=== PATIENT | female | born 1960 | race Caucasian/White ===

== ENCOUNTER 2016-07-09 11:33 | Emergency (ER) | payer OTHER ==
[2016-07-09 11:46] VITALS: BP 154/71; PULSE 96; TEMP 97.8; BMI 37.9
[2016-07-09] MEDS ORDERED: diazePAM 5 MG TABLET PO ONE (12:57)
[2016-07-09] MEDS ORDERED: KETOROLAC TROMETHAMINE 60 MG/2 ML VIAL IM ONE (12:57)
[2016-07-09] MEDS ORDERED: KETOROLAC TROMETHAMINE 60 MG/2 ML VIAL ONE (13:03)
[2016-07-09] MEDS ORDERED: diazePAM 5 MG TABLET ONE (13:03)
--- NOTE | 2016-07-09 13:43 | PDOC ---
History of Present Illness - General Chief Complaint: Back Pain Stated Complaint: BACK PAIN Time Seen by Provider: 07/09/16 12:03 History Source: Patient Exam Limitations: No Limitations - History of Present Illness Initial Comments: 07/09/16 13:02 56-year-old female with acute on chronic low back pain presents the ED with sharp pressure to her lumbar spine radiating down her left leg into her buttock. Patient states had x-rays done 2 months ago as request from her PCP which she states had noted arthritis with no acute findings. Patient states has not taken anything for the pain today and decided come to the ER for further evaluation. Patient denies incontinence, saddle anesthesia, abdominal pain, weakness, edema, or sensory changes to her lower extremities. Occurred: reports: just prior to arrival Severity: reports: moderate Pain Location: reports: back Method of Injury: Yes: unknown Loss of Consciousness: no loss of consciousness Associated Symptoms (Fall): trouble walking Past History - Past Medical History Allergies/Adverse Reactions: Allergies Allergy/AdvReac Type Severity Reaction Status Date / Time No Known Allergies Allergy Verified 07/09/16 11:36 Home Medications: Ambulatory Orders Aspirin [ASA -] 325 mg PO DAILY #30 tablet 01/17/16 Docusate Sodium [Colace -] 100 mg PO TID #90 capsule 01/28/16 Montelukast Na [Singulair -] 10 mg PO HS 02/06/16 Levetiracetam [Keppra -] 500 mg PO BID #60 tablet 02/07/16 Lisinopril [Prinivil] 5 mg PO DAILY #30 tablet 02/07/16 Simvastatin 20 mg PO HS #30 tablet 02/07/16 Anemia: Yes Asthma: No Cancer: No Cardiac Disorders: No CVA: Yes (recent history of right parietal cva) COPD: No CHF: No Diabetes: No GI Disorders: No Disorders: No HTN: Yes Hypercholesterolemia: Yes Liver Disease: No Seizures: No Thyroid Disease: No - Immunization History Immunization Up to Date: No - Psycho/Social/Smoking Cessation Hx Anxiety: No Suicidal Ideation: No Smoking History: Never smoked Have you smoked in the past 12 months: No Information on smoking cessation initiated: No Hx Alcohol Use: No Drug/Substance Use Hx: No Substance Use Type: None Hx Substance Use Treatment: No Patient Lives Alone: No Lives with/in: spouse/SO Trauma Specific PMHX - Complaint Specific PMHX Arthritis: No Back Injury: No Neck Injury: No Hx Sacro Iliac Joint Dysfunction: No Review of Systems - Review of Systems Able to Perform ROS?: Yes Constitutional: No: Symptoms Reported HEENTM: No: Symptoms Reported ABD/GI: No: Symptoms Reported Musculoskeletal: Yes: Back Pain, Muscle Pain (left buttock) Integumentary: No: Symptoms Reported Neurological: No: Symptoms reported, Numbness, Tingling, Weakness, Dizziness Endocrine: No: Symptoms Reported Hematologic/Lymphatic: No: Symptoms Reported *Physical Exam - Vital Signs Last Vital Signs Temp Pulse Resp BP Pulse Ox 97.8 F 96 H 18 154/71 100 07/09/16 11:36 07/09/16 11:36 07/09/16 11:36 07/09/16 11:36 07/09/16 11:36 - Physical Exam General Appearance: Yes: Nourished, Appropriately Dressed. No: Apparent Distress Neck: negative: Tender, Supple Respiratory/Chest: positive: Lungs Clear, Normal Breath Sounds. negative: Respiratory Distress, Accessory Muscle Use Cardiovascular: positive: Regular Rhythm, Regular Rate. negative: Murmur Gastrointestinal/Abdominal: positive: Soft. negative: Tenderness Musculoskeletal: positive: Vertebral Tenderness (Mild midline L5 tenderness. Moderate tenderness to paraspinous muscle of L4-L5 and left sciatica. ) Extremity: positive: Normal Capillary Refill, Normal Inspection, Normal Range of Motion. negative: Pedal Edema Integumentary: positive: Normal Color, Warm, Moist Neurologic: positive: Motor Strength 5/5 (ambulatory with minimal assistance) ED Treatment Course - Medications Given in the ED: ED Medications Discontinued Medications Generic Name Dose Route Start Last Admin Trade Name Freq PRN Reason Stop Dose Admin Diazepam 5 mg 07/09/16 12:57 07/09/16 13:14 Valium - PO 07/09/16 12:58 5 mg ONCE ONE Administration Ketorolac Tromethamine 60 mg 07/09/16 12:57 07/09/16 13:12 Toradol Injection - IM 07/09/16 12:58 60 mg ONCE ONE Administration Medical Decision Making - Medical Decision Making 07/09/16 13:05 Patient with acute on chronic low back pain likely with sciatica. Patient then had mild point tenderness to L4-L5 region with left sciatic tenderness over the left buttock. Patient ambulatory to the bathroom with minimal assistance of her . Patient ordered for pain control muscle relaxant. Patient had x-ray done in April which showed degenerative changes with arthritis to the affected area. Patient will be given a referral to Dr. Woodruff. *DC/Admit/Observation/Transfer Diagnosis at time of Disposition: Low back pain radiating to lower extremity - Discharge Dispostion Disposition: HOME Condition at time of disposition: Improved - Referrals Referrals: Carson Woodruff MD [Staff Physician] - - Patient Instructions Printed Discharge Instructions: DI for Low Back Pain Additional Instructions: Please take Percocet and Flexeril as recommended and prescribed and follow-up with referred physician. Return to ED If symptoms worsen prior to your follow-up
== END 2016-07-09 15:00 | disposition home or self-care (01) ==
LOC: JER 11:33
PROC: 3E0233Z Introduction of Anti-inflammatory into Muscle, Percutaneous Approach (ICD-10-PCS; principal; 2016-07-09)
DX: M54.42 Lumbago with sciatica, left side (principal); I10 Essential (primary) hypertension; E78.00 Pure hypercholesterolemia, unspecified; Z86.73 Personal history of transient ischemic attack (TIA), and cerebral infarction without residual deficits
CPT/HCPCS: 96372; 99282-25

== ENCOUNTER 2019-05-02 10:52 | Emergency (ER) | payer OTHER ==
[2019-05-02 11:10] VITALS: BMI 38.4
[2019-05-02] MEDS ORDERED: ACETAMINOPHEN 500 MG TABLET (FP) PO ONE (13:00)
[2019-05-02] MEDS ORDERED: ACETAMINOPHEN 325 MG TABLET (FP) ONE ×2 (13:02→13:03)
--- NOTE | 2019-05-02 14:15 | PDOC ---
Documentation entered by Deb Martínez SCRIBE, acting as scribe for Dayana Montemayor MD. Dayana Montemayor MD: This documentation has been prepared by the Mauricio gomez Nirvannie, SCRIBE, under my direction and personally reviewed by me in its entirety. I confirm that the documentation accurately reflects all work, treatment, procedures, and medical decision making performed by me. History of Present Illness - General Chief Complaint: Injury Stated Complaint: FELL Time Seen by Provider: 05/02/19 11:28 History Source: Patient Exam Limitations: No Limitations - History of Present Illness Initial Comments: 05/02/19 13:00 The patient is a 58 year old female, with a significant past medical history of R CVA 2016 with no residual deficits, chronic low back pain, HTN, and thyroid disorder, who presents to the emergency department s/p fall down 3 stairs. As per patient, she was walking down the stairs when she accidentally missed a step causing her to fall forward down 3 stairs. Pt states she rolled her ankles b/l and currently c/o pain only to bilateral shins, ankles, and feet. Patient called for daughter and was helped up immediately. She was able to ambulate with pain s/p fall. She denies any LOC, head/neck trauma, or convulsions. She denies pain elsewhere. She takes ASA daily but is not on any other blood thinners. She denies any neck or back pain. She denies recent fevers, chills, headache or dizziness. She denies recent nausea, vomiting, diarrhea or constipation. She denies recent dysuria, frequency, urgency or hematuria. She denies recent chest pain or shortness of breath. She was in her [facility] prior to the fall. Allergies: NKDA Primary Care Physician: Dr. Valadez Past History - Past Medical History Allergies/Adverse Reactions: Allergies Allergy/AdvReac Type Severity Reaction Status Date / Time No Known Allergies Allergy Verified 07/09/16 11:36 Home Medications: Ambulatory Orders Aspirin [ASA -] 325 mg PO DAILY #30 tablet 01/17/16 Docusate Sodium [Colace -] 100 mg PO TID #90 capsule 01/28/16 Montelukast Na [Singulair -] 10 mg PO HS 02/06/16 Lisinopril [Prinivil] 5 mg PO DAILY #30 tablet 02/07/16 Simvastatin 20 mg PO HS #30 tablet 02/07/16 levETIRAcetam [Keppra -] 500 mg PO BID #60 tablet 02/07/16 Anemia: Yes Asthma: No Cancer: No Cardiac Disorders: No CVA: Yes (recent history of right parietal cva) COPD: No CHF: No Diabetes: No GI Disorders: No Disorders: No HTN: Yes Hypercholesterolemia: Yes Liver Disease: No Seizures: No Thyroid Disease: No - Immunization History Immunization Up to Date: No - Psycho Social/Smoking Cessation Hx Smoking History: Never smoked Have you smoked in the past 12 months: No Hx Alcohol Use: No Drug/Substance Use Hx: No Substance Use Type: None Hx Substance Use Treatment: No Review of Systems - Review of Systems Able to Perform ROS?: Yes Comments:: 05/02/19 13:01 GENERAL/CONSTITUTIONAL: No fever or chills. No weakness. HEAD, EYES, EARS, NOSE AND THROAT: No change in vision. No ear pain or discharge. No sore throat. GASTROINTESTINAL: No nausea, vomiting, diarrhea or constipation. GENITOURINARY: No dysuria, frequency, or change in urination. CARDIOVASCULAR: No chest pain or shortness of breath. RESPIRATORY: No cough, wheezing, or hemoptysis. MUSCULOSKELETAL: +Blt ankle, morris and foot pain. No neck or back pain. SKIN: No rash NEUROLOGIC: No headache, vertigo, loss of consciousness, or change in strength/ sensation. ENDOCRINE: No increased thirst. No abnormal weight change. HEMATOLOGIC/LYMPHATIC: No anemia, easy bleeding, or history of blood clots. ALLERGIC/IMMUNOLOGIC: No hives or skin allergy. *Physical Exam - Vital Signs Last Vital Signs Temp Pulse Resp BP Pulse Ox 97.8 F 68 19 121/80 99 05/02/19 11:08 05/02/19 11:08 05/02/19 11:08 05/02/19 11:08 05/02/19 11:08 - Physical Exam 05/02/19 13:02 GENERAL: Awake, alert, and fully oriented, in no acute distress HEAD: No signs of trauma EYES: PERRLA, EOMI, sclera anicteric, conjunctiva clear ENT: Auricles normal inspection, hearing grossly normal, nares patent, oropharynx clear without exudates. Moist mucosa NECK: Normal ROM, supple, no lymphadenopathy, JVD, or masses LUNGS: Breath sounds equal, clear to auscultation bilaterally. No wheezes, and no crackles HEART: Regular rate and rhythm, normal S1 and S2, no murmurs, rubs or gallops ABDOMEN: Soft, nontender, normoactive bowel sounds. No guarding, no rebound. No masses EXTREMITIES: +Tenderness to the right lateral malleolus, left distal tibia and medial malleolus with no deformities, crepitus or edema. FROM in all LE joints b /l. 2+ DP and TP pulses b/l. +Superficial 1cm abrasion to the inferior right patella. Normal strength agianst resistance to all joints in LE b/l. Normal sensation. WWP. Otherwise. Normal range of motion, no edema. No clubbing or cyanosis. No cords or erythema. BACK: No midline spinal tenderness in cervical/thoracic/lumbar region NEUROLOGICAL: Normal speech, cranial nerves intact, 5/5 strength in all 4 extremities, normal sensation to light touch in all 4 extremities, normal cerebellar exam, normal reflexes and tone SKIN: Warm, Dry, normal turgor, no rashes or lesions noted. ED Treatment Course - RADIOLOGY Radiology Studies Ordered: Category Date Time Status ANKLE & FOOT-LEFT* [RAD] Stat Radiology 05/02/19 12:59 Completed ANKLE & FOOT-RIGHT* [RAD] Stat Radiology 05/02/19 12:59 Completed LEG TIB/FIB-LEFT [RAD] Stat Radiology 05/02/19 12:59 Completed LEG TIB/FIB-RIGHT [RAD] Stat Radiology 05/02/19 12:59 Completed Medical Decision Making - Medical Decision Making 05/02/19 14:11 58-year-old female presents the emergency department with bilateral tib-fib, ankle, and foot pain after a fall down 3 stairs. Fall was mechanical, as patient missed a step. She has no other complaints and no other evidence of trauma on her exam. Plain films of the tib-fib, ankle and foot bilaterally were obtained which were negative for any acute injury. Patient's pain is well controlled with Tylenol. Sam wrap applied bilaterally to the ankles. Patient ambulating steadily in the emergency department. She is clinically stable for discharge home. I discussed the physical exam findings, ancillary test results and final diagnoses with the patient. I answered all of the patient's questions. The patient was satisfied with the care received and felt comfortable with the discharge plan and treatment plan. The patient will call their primary care physician within 24 hours to arrange follow-up and will return to the Emergency Department with any new, persistent or worsening symptoms. Discharge - Discharge Information Problems reviewed: Yes Clinical Impression/Diagnosis: Fall (on) (from) other stairs and steps, initial encounter, Bilateral ankle pain, Foot pain, bilateral Condition: Improved Disposition: HOME - Admission No - Follow up/Referral Referrals: Sathish Navarro MD [Primary Care Provider] - - Patient Discharge Instructions Patient Printed Discharge Instructions: How to Prevent Falls, DI for Ankle Pain , DI for Ankle Sprain Additional Instructions: You may take Tylenol every 6 hours as needed for pain. Follow-up with your primary care physician within 1 week for further evaluation. Return to the emergency department if you have any new, worsening or concerning symptoms. - Post Discharge Activity
[2019-05-02 14:29] VITALS: BP 125/76; PULSE 78; TEMP 98
== END 2019-05-02 14:29 | disposition home or self-care (01) ==
LOC: JER 10:52
DX: I10 Essential (primary) hypertension (principal); G89.29 Other chronic pain; E78.00 Pure hypercholesterolemia, unspecified; Z86.73 Personal history of transient ischemic attack (TIA), and cerebral infarction without residual deficits; D64.9 Anemia, unspecified
CPT/HCPCS: 73590-TC-LT-FY; 73590-TC-RT-FY; 73610-TC-LT-FY; 73610-TC-RT-FY; 73630-TC-LT; 73630-TC-RT-FY; 99282-25

== ENCOUNTER 2020-02-07 13:31 | Emergency (ER) | payer OTHER ==
--- NOTE | 2020-02-07 13:42 | PDOC ---
Rapid Medical Evaluation Time Seen by Provider: 02/07/20 13:39 Medical Evaluation: Allergies Allergy/AdvReac Type Severity Reaction Status Date / Time No Known Allergies Allergy Verified 07/09/16 11:36 02/07/20 13:39 Pt presents for evaluation of eye lid swelling to the R lower lid starting yesterday. She also reports having a headache which as since resolved. Denies visual changes Exam: Mild edema to the R lower eye lid, VSS Orders: Defer to provider Pt to proceed to the ER for further evaluation 2 Discharge Disposition - Diagnosis Swollen eyelid - Referrals - Patient Instructions - Post Discharge Activity
[2020-02-07 13:45] VITALS: BP 120/79; PULSE 81; TEMP 98.7; BMI 38.7
--- NOTE | 2020-02-07 14:23 | PDOC ---
History of Present Illness - General Chief Complaint: Eye Problem Stated Complaint: Allergic Reaction Time Seen by Provider: 02/07/20 13:39 - History of Present Illness Initial Comments: 02/07/20 14:21 59-year-old female with past medical history of TIA CVA hypothyroidism and hypertension presents for evaluation of left-sided facial pain with associated headache which started yesterday. The headache has since resolved. No systemic symptoms. No rashes. No visual changes. No ear pain. Past History - Medical History Allergies/Adverse Reactions: Allergies Allergy/AdvReac Type Severity Reaction Status Date / Time No Known Allergies Allergy Verified 02/07/20 13:39 Home Medications: Ambulatory Orders Aspirin [ASA -] 325 mg PO DAILY #30 tablet 01/17/16 Docusate Sodium [Colace -] 100 mg PO TID #90 capsule 01/28/16 Montelukast Na [Singulair -] 10 mg PO HS 02/06/16 Lisinopril [Prinivil] 5 mg PO DAILY #30 tablet 02/07/16 Simvastatin 20 mg PO HS #30 tablet 02/07/16 levETIRAcetam [Keppra -] 500 mg PO BID #60 tablet 02/07/16 Anemia: Yes Asthma: No Cancer: No Cardiac Disorders: No CVA: Yes (recent history of right parietal cva) COPD: No CHF: No Diabetes: No GI Disorders: No Disorders: No HTN: Yes Hypercholesterolemia: Yes Liver Disease: No Seizures: No Thyroid Disease: No - Immunization History Immunization Up to Date: No - Psycho-Social/Smoking History Smoking History: Never smoked Have you smoked in the past 12 months: No - Substance Abuse Hx (Audit-C & DAST Scrn) How often the patient has a drink containing alcohol: Never Score: In Men: 4 or > Positive; In Women: 3 or > Positive: 0 Screen Result (Pos requires Nsg. Audit-10AR): Negative In the last yr the pt used illegal drug/Rx for NonMed reason: No Score: Yes response is considered Positive: 0 Screen Result (Positive result requires Nsg. DAST-10): Negative Review of Systems - Review of Systems Constitutional: No: Fever HEENTM: No: Blurred Vision, Tearing, Ear Pain Integumentary: Yes: Pruritus. No: Rash Neurological: Yes: Headache. No: Paresthesia *Physical Exam - Vital Signs Last Vital Signs Temp Pulse Resp BP Pulse Ox 98.7 F 81 18 120/79 100 02/07/20 13:39 02/07/20 13:39 02/07/20 13:39 02/07/20 13:39 02/07/20 13:39 - Physical Exam 02/07/20 14:22 GENERAL: The patient is awake, alert, and fully oriented, in no acute distress. HEAD: Normal with no signs of trauma. Normal facial skin color and temperature EYES: sclera anicteric, conjunctiva clear. ENT: Ears normal tympanic membranes normal oropharynx clear uvula midline NECK: Normal range of motion EXTREMITIES: Normal range of motion, no edema. No clubbing or cyanosis. No cords, erythema, or tenderness. NEUROLOGICAL: Cranial nerves II through XII grossly intact. PSYCH: Normal mood, normal affect. SKIN: Warm, Dry, normal turgor, no rashes or lesions noted. Medical Decision Making - Medical Decision Making 02/07/20 14:22 Benign examination. This may represent early shingles or Macias's palsy will have patient follow-up without fail with her primary care physician tomorrow or return to the emergency room for second look. I have reviewed the pathophysiology with the patient. They are in agreement with the treatment plan all questions were answered to their satisfaction. Understanding for follow-up without fail was also conveyed to the patient. Again they are in agreement. Discharge - Discharge Information Problems reviewed: Yes Clinical Impression/Diagnosis: Facial pain Clinical Impression/Diagnosis: (Ruled Out): Swollen eyelid Condition: Stable Disposition: HOME - Admission No - Follow up/Referral Referrals: Sathish Navarro MD [Primary Care Provider] - - Patient Discharge Instructions Additional Instructions: Return to the emergency room for further issues. Without fail follow-up with your primary care physician tomorrow. If you cannot get in with your primary care physician tomorrow you should return to the emergency room for recheck. Sooner than tomorrow if problems should develop. Continue your regular medication as scheduled. - Post Discharge Activity
== END 2020-02-07 14:26 | disposition home or self-care (01) ==
LOC: JERFT 13:31
DX: H02.843 Edema of right eye, unspecified eyelid (principal)
CPT/HCPCS: 99283-25

== ENCOUNTER 2022-02-13 15:58 | Emergency (ER) | payer OTHER ==
[2022-02-13 16:12] VITALS: TEMP 98.4; BMI 45.4
[2022-02-13 17:24] LABS: BASO % 0.4 % (0-2.0); EOS % 1.8 % (0-4.5); HEMATOCRIT 40.5 % (32.4-45.2); HEMOGLOBIN 13.4 GM/dL (10.7-15.3); LYMPH % 27.3 % (8-40); MCH 29.1 pg (25.7-33.7); MEAN CELL VOLUME 88.2 fl (80-96); MEAN PLT VOLUME 9.9 fl (7.5-11.1); NEUT % 63.5 % (42.8-82.8); PLATELET COUNT 191 10^3/uL (134-434); RBC 4.59 M/mm3 (3.60-5.2); RDW 14.2 % (11.6-15.6); WHITE BLOOD COUNT 5.9 K/mm3 (4.0-10.0)
[2022-02-13 17:44] LABS: CHLORIDE 106 mmol/L (98-107); SODIUM 142 mmol/L (136-145)
[2022-02-13 17:46] LABS: ALBUMIN 3.7 g/dl (3.4-5.0); ANION GAP 4 MMOL/L (8-16); BLOOD UREA NITROGEN 12.7 mg/dL (7-18); CALCIUM 9.5 mg/dL (8.5-10.1); CO2 32 mmol/L (21-32); GLUCOSE,RANDOM 91 mg/dL (74-106)
[2022-02-13 17:49] LABS: CREATININE 0.8 mg/dL (0.55-1.3); SGPT/ALT 41 U/L (13-61)
[2022-02-13 17:50] LABS: SGOT/AST 28 U/L (15-37)
[2022-02-13 17:51] LABS: BILIRUBIN,TOTAL 0.3 mg/dL (0.2-1); TOT PROT 7.4 g/dl (6.4-8.2)
[2022-02-13 17:52] LABS: ALK PHOS 84 U/L (45-117); N-TERMINAL BNP 30.7 pg/ml (5-125)
[2022-02-13 19:52] VITALS: BP 122/71; PULSE 68; RESP 16
== END 2022-02-13 19:53 | disposition home or self-care (01) ==
LOC: JER 15:58
DX: R07.9 Chest pain, unspecified (principal)
CPT/HCPCS: 0241U-QW; 36415; 71046-TC-FY; 80053; 83880; 84439; 84443; 84484; 85025; 93005; 93010; 99285-25

== ENCOUNTER 2023-11-23 14:07 | Emergency (ER) | payer OTHER ==
[2023-11-23 14:35] VITALS: BP 132/90; PULSE 77; RESP 20; TEMP 98; BMI 40.6
[2023-11-23] MEDS ORDERED: guaiFENesin/D-METHORPHAN HB 10 ML UNIT-DOSE CUPS ONE (14:53)
[2023-11-23] MEDS ORDERED: ACETAMINOPHEN 325 MG TABLET (FP) ONE (14:53)
[2023-11-23] MEDS: guaiFENesin 200 MG/10 ML 10 ML UNIT-DOSE CUPS PO ONE (14:56)
[2023-11-23] MEDS: ACETAMINOPHEN 325 MG TABLET (FP) PO ONE (14:57)
[2023-11-23 15:22] LABS: HEMOGLOBIN 13.8 G/dL (10.7-15.3); MCH 29.4 pg (25.7-33.7); MEAN CELL VOLUME 89.4 fl (80-96); MEAN PLT VOLUME 9.8 fl (7.5-11.1); PLATELET COUNT 199.6 10^3/uL (134-434); RDW 13.9 % (11.6-15.6); WHITE BLOOD COUNT 6.2 10^3/uL (4.0-10.8)
[2023-11-23 15:34] LABS: ALK PHOS 87 U/L (45-117); ANION GAP 5 mmol/L (4-13); BILIRUBIN,TOTAL 0.5 mg/dl (0.2-1); CALCIUM 9.7 mg/dl (8.5-10.1); CHLORIDE 103 mmol/L (98-107); CO2 29 mmol/L (21-32); CREATININE 0.7 mg/dl (0.6-1.3); GLUCOSE,RANDOM 89 mg/dl (74-106); POTASSIUM 4.3 mmol/L (3.5-5.1); SGOT/AST 22 U/L (15-37); SGPT/ALT 26 U/L (7-52); SODIUM 137 mmol/L (136-145); TOT PROT 7.2 g/dl (6.4-8.2)
[2023-11-23 16:15] LABS: PLATELET ESTIMATE ADEQUATE
== END 2023-11-23 15:58 | disposition home or self-care (01) ==
LOC: FER 14:07
DX: R07.89 Other chest pain (principal); M54.6 Pain in thoracic spine; R05.9 Cough, unspecified
CPT/HCPCS: 36415; 71045-TC-FY; 80053; 84484; 85027; 93005; 99285-25